=== PATIENT | female | born 1975 | race Caucasian/White ===

== ENCOUNTER 2016-10-27 21:30 | Emergency (ER) | payer OTHER ==
[~2016-10-27] VITALS: Ht 170.2 cm; Wt 83.6 kg
[2016-10-28] MEDS ORDERED: FLEXERIL10 MG PO (00:42)
[2016-10-28] MEDS ORDERED: NAPROSYN500 MG PO (00:42)
[2016-10-28 00:46] VITALS: BP 185/99
== END 2016-10-28 00:47 | disposition home or self-care (01) ==
LOC: EXP 21:30 → EME 21:30 → EXP 10-28 00:47
DX: S76.011A Strain of muscle, fascia and tendon of right hip, initial encounter (principal); X50.1XXA Overexertion from prolonged static or awkward postures, initial encounter; Y93.42 Activity, yoga; I10 Essential (primary) hypertension; F17.200 Nicotine dependence, unspecified, uncomplicated
CPT/HCPCS: 73502; 99281; 99283